=== PATIENT | male | born 1990 | race Caucasian/White ===

== ENCOUNTER 2020-07-14 02:21 | Emergency (ER) | payer OTHER ==
[~2020-07-14] VITALS: Ht 180.3 cm; Wt 90.7 kg
[2020-07-14 05:16] VITALS: BP 124/81
== END 2020-07-14 05:18 | disposition home or self-care (01) ==
LOC: M.ERS 02:21
DX: M24.412 Recurrent dislocation, left shoulder (principal); F10.129 Alcohol abuse with intoxication, unspecified; Y90.8 Blood alcohol level of 240 mg/100 ml or more

== ENCOUNTER 2020-10-18 02:43 | Emergency (ER) | payer OTHER ==
[~2020-10-18] VITALS: Ht 182.9 cm; Wt 99.8 kg
[2020-10-18 04:03] VITALS: BP 112/50
== END 2020-10-18 04:04 | disposition home or self-care (01) ==
LOC: M.ERS 02:43
DX: S43.084A Other dislocation of right shoulder joint, initial encounter (principal); X50.9XXA Other and unspecified overexertion or strenuous movements or postures, initial encounter; Y93.89 Activity, other specified; Y92.89 Other specified places as the place of occurrence of the external cause; Y99.8 Other external cause status

== ENCOUNTER 2021-02-11 21:23 | Emergency (ER) | payer OTHER ==
[~2021-02-11] VITALS: Ht 180.3 cm; Wt 95.3 kg
== END 2021-02-11 21:53 | disposition home or self-care (01) ==
LOC: M.ERS 21:23
DX: M24.412 Recurrent dislocation, left shoulder (principal)